=== PATIENT | female | born 1980 | race Caucasian/White ===

== ENCOUNTER → 2020-03-05 | Outpatient (CLI) | payer OTHER ==
[~2020-03-05] MED LIST: ALBU83IN INH; BACL1TAB8 PO; CLON0.2T PO; CYCL-707 PO; DICL75TA PO; GABA-843 PO; MIRA0.12 PO; NABU-126 PO; NYST1POW9 TOP; ONDA8TAB10 PO; QUET100T2 PO; ROPI2TAB3 PO; TRAZ-257 PO; VALI5TAB PO; ZIPR80CA12 PO
== END ==
LOC: M LABSMTC 11:12 → EDUNIT# 11:50
PROVIDERS: ATTEND Anesthesiology
DX: Z03.818 Encounter for observation for suspected exposure to other biological agents ruled out (principal); Z11.59 Encounter for screening for other viral diseases
CPT/HCPCS: C9803; U0003

== ENCOUNTER 2020-03-08 09:26 | Day surgery (SDC) | payer OTHER ==
[~2020-03-08] VITALS: Ht 160 cm; Wt 111.9 kg
[~2020-03-08 09:26] MED LIST changes: +LR 1,000 ML IV ONE
[2020-03-08] MEDS ORDERED: dexameTHASONE 4 MG/ML 1ML VIAL (J1100 PER 1MG) As Ordered ONE ×2 (10:17→11:28)
[2020-03-08] MEDS ORDERED: MIDAZOLAM INJ 2MG/2ML VIAL (J2250 PER 1MG) As Ordered ONE (10:17)
[2020-03-08] MEDS ORDERED: ONDANSETRON 4MG/2ML VIAL As Ordered ONE (10:17)
[2020-03-08] MEDS ORDERED: LIDOCAINE 2% 100MG/5ML SDV (FOR ANES.) As Ordered ONE (10:17)
[2020-03-08] MEDS ORDERED: propofoL 200 MG/20 ML VIAL As Ordered ONE (10:17)
[2020-03-08] MEDS ORDERED: KETOROLAC 60 MG/2 ML VIAL As Ordered ONE (10:17)
[2020-03-08] MEDS ORDERED: fentaNYL 100 MCG/2 ML INJECTION (J3010) As Ordered ONE (10:18)
[2020-03-08] MEDS ORDERED: METOCLOPRAMIDE INJ 10MG/2ML VIAL (J2765 PER 1) As Ordered ONE (11:24)
[2020-03-08] MEDS ORDERED: HYDROmorphone HCL 2 MG/ML 1ML VIAL (J1170) As Ordered ONE (11:42)
[2020-03-08] MEDS ORDERED: oxyCODONE 5MG TAB As Ordered ONE (11:59)
[2020-03-08] MEDS ORDERED: NORCO, ANEXSIA 5/325MG TABLET (HYDROcodone/ACETAMINOPHEN) PO PRN (12:15)
[2020-03-08] MEDS ORDERED: LR 1,000 ML IV SCH ×2 (12:15)
[2020-03-08] MEDS ORDERED: ONDANSETRON 4MG/2ML VIAL IV PRN (12:15)
[2020-03-08] MEDS ORDERED: fentaNYL 100 MCG/2 ML INJECTION (J3010) IV PRN (12:15)
[2020-03-08] MEDS ORDERED: oxyCODONE 5MG TAB PO PRN (12:15)
[2020-03-08] MEDS ORDERED: HYDROMORPHONE HCL 0.5 MG/ 0.5 ML SYRINGE (J1170 PER 1) IV PRN (12:15)
[2020-03-08 12:50] VITALS: BP 116/76
[2020-03-08] MEDS ORDERED: IBUPROFEN 600MG TAB PO PRN (17:00)
--- NOTE | 2020-03-13 12:43 | RO ---
DATE OF PROCEDURE: 03/08/2020 PREOPERATIVE DIAGNOSES/INDICATION FOR SURGERY: Pain and bleeding. POSTOPERATIVE DIAGNOSES: Pain and bleeding. PROCEDURE: Dilation and curettage, hysteroscopy, NovaSure ablation. SURGEON: Casi Wren MD [employer]: ANESTHESIA: Laryngeal mask airway (LMA). BRIEF DESCRIPTION OF PROCEDURE AND FINDINGS: Yue was brought to the operating room where sufficient LMA anesthesia was induced. She was prepped, draped, and positioned in the usual sterile fashion. After the bladder had been emptied and the cervix grasped with single-tooth tenaculum, the uterus was sounded. Endocervical length was 4 and cavity length was 5. Total sounding length was 9. Hysteroscope was placed. There is a slight anterior scar without any evidence of particularly thin or unusual tissue at the lower uterine segment. This is consistent with her (C) section history. We did not see any movement this with change in how much the uterine cavity was distended. It did not appear to be unduly thin or atypical, just the teeniest of noticeable divot, but without any evidence for danger for the patient. She also had a small polyp with a very benign soft appearance. Nudging it with the scope confirmed it was just soft, but we did do intraoperative curettage. Even though she had, had a previous biopsy did double-check all the tissue. She also had normal ostia and overall normal cavity contour. After the curettage, the NovaSure device was placed. Length was measured at 5 as already noted, width was measure at 4.4, and an uncomplicated NovaSure ablation was carried out. Of course the curettage specimen was sent for pathology evaluation. Fluid replacement was crystalloid. Estimated blood loss 2 mL. Complications none. With the procedure ended, the patient tolerated the procedure well. She was recovering in the recovery room in good condition.
== END 2020-03-08 13:25 | disposition home or self-care (01) ==
LOC: M SDC 09:26
PROVIDERS: ATTEND Obstetrics & Gynecology
DX: N92.0 Excessive and frequent menstruation with regular cycle (principal); R10.2 Pelvic and perineal pain; M79.7 Fibromyalgia; J44.9 Chronic obstructive pulmonary disease, unspecified; F43.10 Post-traumatic stress disorder, unspecified; F41.9 Anxiety disorder, unspecified; F32.9 Major depressive disorder, single episode, unspecified; Z79.899 Other long term (current) drug therapy
CPT/HCPCS: 58563; 88304; J1100; J1170; J1885; J2250; J2405; J2765; J3010